=== PATIENT | male | born 1955 | race Caucasian/White ===

== ENCOUNTER 2019-11-27 17:14 | Emergency (ER) | payer BC ==
[2019-11-27] MEDS: cefTRIAXone 1 GM Vial IM ONE (18:17)
[2019-11-27] MEDS: Bupivacaine 0.25% 10 ML SDV INJECT ONE (18:17)
--- NOTE | 2019-11-27 18:28 | EDM.PDOC ---
ED HPI GENERAL MEDICAL PROBLEM - General Stated Complaint: LEFT INDEX FINGER INFECTION Time Seen by Provider: 11/27/19 17:15 Source of Information: Reports: Patient, Family () History Limitations: Reports: No Limitations - History of Present Illness INITIAL COMMENTS - FREE TEXT/NARRATIVE: 64-year-old male presents to the emergency room with increasing pain discomfort left distal index finger. Patient reports 24-48 hours of increasing pain and swelling in the finger and now redness. He had difficulty sleeping last night due to the pain and discomfort. He took a needle and soaked it in alcohol and try to aspirate into the area of redness and swelling over the radial side of the skin fold. He noticed a little bit of purulence. He is not had relief of the symptoms. Onset Date: 11/26/19 Duration: Day(s):, Constant, Getting Worse Location: Reports: Upper Extremity, Left (left index finger tip) Quality: Reports: Pressure, Throbbing Severity: Moderate Improves with: Reports: None Worsens with: Reports: Other (touch, palapation) - Related Data Allergies Allergy/AdvReac Type Severity Reaction Status Date / Time venom-honey bee Allergy Cannot Verified 10/09/15 13:14 [bee venom (honey bee)] Remember ED ROS GENERAL - Review of Systems Review Of Systems: Comprehensive ROS is negative, except as noted in HPI. ED EXAM, GENERAL - Physical Exam Exam: See Below Exam Limited By: No Limitations General Appearance: Alert, WD/WN, Mild Distress Ears: Hearing Grossly Normal Throat/Mouth: Normal Voice, No Airway Compromise Head: Atraumatic Neck: Normal Inspection Respiratory/Chest: No Respiratory Distress Extremities: Increased Warmth, Redness, Other (Left index finger shows swelling redness and tenderness around the soft tissue of the nail radial side. This is consistent with a infected paronychia. Tenderness is limited motion swelling or redness of the DIP and PIP her metacarpal joint left index finger. Remaining fingers are atraumatic without swelling warmth or redness and move without pain or discomfort.). No: Joint Swelling Neurological: Alert, Oriented, No Motor/Sensory Deficits ED GENERAL MEDICAL PROCEDURES - Additional/Other Procedure(s) Other (Free Text) Procedure(s): Left index finger was prepped with ChloraPrep, 5 mL of quarter percent bupivacaine was used to perform a digital block to the left index finger. After adequate block finger was reprepped with ChloraPrep and an 18-gauge needle was placed into the radial side of the skin fold of left index finger next to the nail. Pus was expressed and cultures for aerobic, anaerobic, Gram stain 2 were taken. A 15 blade then was used along the skin fold next to the nail to further open area of infection. He may need pus was expressed using compression out of the distal tip paronychia. Light dressing was applied using Tubegauz. Patient tolerated procedure well. Course - Orders/Labs/Meds Meds: Medications Discontinued Medications Generic Name Dose Route Start Last Admin Trade Name Gricelda PRN Reason Stop Dose Admin Bupivacaine HCl 10 ml 11/27/19 17:27 Sensorcaine-Mpf 0.25% INJECT 11/27/19 17:28 ONETIME ONE Ceftriaxone Sodium 1 gm 11/27/19 18:13 Rocephin IM 11/27/19 18:14 ONETIME ONE Departure - Departure Time of Disposition: 18:32 Disposition: Home, Self-Care 01 Condition: Good Clinical Impression: Paronychia of finger Qualifiers: Laterality: left Qualified Code(s): L03.012 - Cellulitis of left finger - Discharge Information Referrals: Mariam Hill PA-C [Primary Care Provider] - - Assessment/Plan Assessment:: Paronychia infection left index finger. Plan: 1. I&D using a 15 blade and 18-gauge needle directly into the skin fold next to the nail bed. 2. Cultures, Gram stain, aerobic, anaerobic obtained. 3. Rocephin 1 g IM given 4. Keflex 500 mg 4 times a day for 5 days 5. Dressing change 1-2 days. 6. I'll up with primary care in 48 hours if not significant improvement.
== END 2019-11-27 18:50 | disposition home or self-care (01) ==
LOC: KA.ED 17:14
DX: L03.012 Cellulitis of left finger (principal); Z91.030 Bee allergy status
CPT/HCPCS: 10060; 87070; 87205; 96372; 99283-25; J0696; J3490